=== PATIENT | female | born 1960 | race Caucasian/White ===

== ENCOUNTER → 2017-11-04 | Outpatient (CLI) | payer BC ==
[~2017-11-04] MED LIST: ALPR-429 PO; AMLO-106 PO; AMLO-109 PO; AMLO-476 PO; ASPI-715 PO; ASPI81TA94 PO; ATOR40TA24 PO; CALC-1 PO; CHOL10005 PO; CLAR-1 PO; CLON-327 PO; CLON1 PO; CYA1000 PO; DIA5 PO; ESCI20TA38 PO; ESCI20TA8 PO; ESCI5TAB10 PO; FOLI-68 PO; HYDR-2966 PO; KET10 PO; LOR05 PO; METO50TA19 PO; PER PO; VARE1TAB3 PO
== END ==
LOC: AUD 12:30
PROVIDERS: ATTEND Otolaryngology
DX: H69.82 Other specified disorders of Eustachian tube, left ear (principal)
CPT/HCPCS: 92553; 92570

== ENCOUNTER → 2018-02-13 | Outpatient (CLI) | payer BC ==
[~2018-02-13] MED LIST changes: +FLU60VIA41 IM
--- NOTE | 2018-02-15 16:26 | RADIOLOGY IMAGING REPORT ---
FACILITY: [facility] - [place] PATIENT NAME: PAUL CALERO : [id number] MR: [id number] V: [id number] EXAM DATE: ORDERING PHYSICIAN: YUNG BURCH TECHNOLOGIST: Joy Garcia PROCEDURE:BILATERAL DIGITAL SCREENING MAMMOGRAM WITH CAD ASSISTED INTERPRETATION & 3D TOMOSYNTHESIS COMPARISON:Prior mammograms 02/09/17, 11/20/15, 11/05/14, 09/17/13, 09/11/13. INDICATIONS:SCREENING FINDINGS: There are scattered areas of fibroglandular density in both breasts. The parenchymal pattern has remained stable allowing for difference in mammographic technique & patient positioning. DIAGNOSTIC CATEGORY 1--NEGATIVE. RECOMMENDATIONS: ROUTINE MAMMOGRAM AND CLINICAL EVALUATION. IMPRESSION: BIRADS 1: Negative. No significant abnormality is seen. Dictated by: Lupis Greene M.D. on 02/15/2018 at 9:51 Transcribed by: MIRIAM on 02/15/2018 at 9:59 Approved by: Lupis Greene M.D. on 02/15/2018 at 16:25 [facility]
== END ==
LOC: MAMO 04:08
PROVIDERS: ATTEND Emergency Medicine
DX: Z12.31 Encounter for screening mammogram for malignant neoplasm of breast (principal); Z80.3 Family history of malignant neoplasm of breast
CPT/HCPCS: 77063; 77067

== ENCOUNTER 2018-03-27 15:59 | Inpatient (IN) | payer BC ==
[~2018-03-27] VITALS: Ht 162.6 cm; Wt 85.7 kg
[~2018-03-27 15:59] MED LIST changes: -ALB6.7R INH; -LEVO750T27 PO; -OMEG-36 PO; -PRED20TA6 PO; -[UNRECOGNIZED DRUG - OTHER]; -tumeric PO
[2018-03-27 16:14] VITALS: BP 146/94
[2018-03-27] MEDS ORDERED: [UNRECOGNIZED DRUG - OTHER] (16:23)
[2018-03-27] MEDS ORDERED: FOLI-68 PO (16:23)
[2018-03-27] MEDS ORDERED: tumeric PO (16:23)
[2018-03-27] MEDS ORDERED: OMEG-36 PO (16:23)
[2018-03-27] MEDS ORDERED: ACETAMINOPHEN 325 MG TAB PO PRN (16:55)
[2018-03-27] MEDS ORDERED: methylPREDNIS SUCC 125 MG/2ML IVP ONE (16:55)
[2018-03-27] MEDS ORDERED: NICOTINE INH SYSTEM 10 MG/INH INH PRN (16:55)
--- NOTE | 2018-03-27 17:11 | History & Physical ---
History of Present Illness Chief Complaint Cough and fever History of Present Illness This patient was seen in the outpatient clinic for cough and fever over the last 3 days. She has also complained of some nausea and diarrhea. History Problems: (1) Hypertension Status: Chronic (2) Mixed hyperlipidemia Status: Chronic (3) Obesity (BMI 30.0-34.9) Status: Chronic Home Meds Active Scripts Clonidine Hcl (CLONIDINE HCL) 0.1 Mg Tablet, 1 TAB PO BID, #180 TAB 3 Refills Prov:YUNG BURCH MD 01/24/18 Hydrochlorothiazide (HYDROCHLOROTHIAZIDE) 25 Mg Tablet, 1 TAB PO QDAY, #90 TAB 3 Refills Prov:YUNG BURCH MD 11/28/17 Amlodipine Besylate/Benazepril (LOTREL 10-40 MG CAPSULE) 1 Each Capsule, 1 EACH PO DAILY, #90 CAPSULE 3 Refills Prov:YUNG BURCH MD 11/28/17 Escitalopram Oxalate (ESCITALOPRAM OXALATE) 20 Mg Tablet, 1 TAB PO QDAY, #90 TAB 3 Refills Prov:YUNG BURCH MD 08/08/17 Reported Medications Folic Acid (FOLIC ACID) 1 Mg Tablet, 1 TAB PO QDAY, TAB unknown dose 03/27/18 [place]-3 Fatty Acids/Fish Oil (OMEGA 3 FISH OIL SOFTGEL) 1 Each Capsule.dr, 1 EACH PO QDAY 03/27/18 [tumeric] No Conflict Check, 1 TAB PO QDAY 03/27/18 Aspirin (ASPIRIN) 81 Mg Tab.chew, 81 MG PO DAILY, TAB.CHEW 05/24/17 Cholecalciferol (Vitamin D3) (VITAMIN D3) 1,000 Unit Tablet, 1000 UNIT PO BID, TAB 05/24/17 Cyanocobalamin (Vitamin B-12) (VITAMIN B-12) 1,000 Mcg Tablet, 1000 MCG PO DAILY 05/24/17 Discontinued Reported Medications [tumer] No Conflict Check 03/27/18 Discontinued Scripts Alprazolam (XANAX) 0.5 Mg Tablet, 1 TAB PO ONCE, #10 TAB Take half an hour before flight and then every four hours if needed Prov:YUNG BURCH MD 11/06/17 Allergies: Coded Allergies: Penicillins (Verified Allergy, Severe, ANAPHYLAXIS, 11/07/08) Patient History: FH: COPD (chronic obstructive pulmonary disease) MOTHER, , Age:83 FH: aortic aneurysm MOTHER, , Age:83 FH: coronary artery disease FATHER, , Age:55 FH: hypertension BROTHER OR SISTER BROTHER OR SISTER BROTHER OR SISTER BROTHER OR SISTER FH: lupus BROTHER OR SISTER Hx Smoking: Yes (5-10 CIG DAY/ X8 YEARS) Smoking Status: Former Smoker Exposure to Second Hand Smoke?: Yes (both parents smoked) When Quit Tobacco?: 1 wk ago Caffeine/Cups Per Day: QUIT 05/2015 Hx Alcohol Use: Yes (RARELY) Hx Substance Use Disorder: No Social Drug Use: Never Review of Systems All Systems Reviewed/Normal: Yes, Except as Noted Constitutional: Fever Respiratory: Cough Exam Vital Signs Vital Signs Date Time Temp Pulse Resp B/P (MAP) Pulse Ox O2 Delivery O2 Flow Rate FiO2 03/27/18 16:35 90 Nasal Cannula 3.0 03/27/18 16:14 99.1 78 18 146/94 (111) Neuro: No Gross deficits Eyes: PERRLA Cardiovascular: Regular Rate and Rhythm Respiratory: Other (Bilateral rhonchi.) Extremities: No Edema Integumentary: No Cyanosis Assessment and Plan Problems: (1) Bacterial pneumonia Assessment & Plan: Her chest x-ray did show bilateral infiltrates. She has been started on empiric treatment with levofloxacin. Blood cultures are pending. She is a smoker, but has never been diagnosed with COPD. We have started her on empiric treatment with prednisone. (2) Hypertension Status: Chronic Assessment & Plan: She is on chronic treatment with amlodipine, benazepril, clonidine, and hydrochlorothiazide. The diuretic has been placed on hold. (3) Obesity (BMI 30.0-34.9) Status: Chronic Copies to: YUNG BURCH MD ; Venous Thromboembolism Antithrombotics Is Pt On Any Antithrombotics?: No COLETTE CABRERA DO Mar 27, 2018 17:11
[2018-03-27] MEDS ORDERED: NS(*) 0.9% 1000 ML BAG 1,000 ML ONE (17:42)
[2018-03-27] MEDS: KCL (*) 20 MEQ/100 ML PREMIX 100 ML IV SCH ×2 (17:46→20:18)
[2018-03-27] MEDS ORDERED: NICOTINE CARTRIDGE 1 EA PO PRN (18:50)
[2018-03-27 20:15] VITALS: BP 152/89
[2018-03-27] MEDS: CHOLECALCIFEROL 1000 UNIT TAB PO SCH (20:18)
[2018-03-27] MEDS: cloNIDine HCL 0.1 MG TAB PO SCH (20:18)
[2018-03-27 22:05] VITALS: BP 129/82
[2018-03-27] MEDS: POTASSIUM CHL 20 MEQ TABCR PO SCH (22:54)
[2018-03-28] MEDS ORDERED: LEVOFLOXACIN/D5W 750 MG/150 ML 150 ML IVPB SCH (06:00)
[2018-03-28 06:19] LABS: PLATELET COUNT, AUTOMATED 130 K/uL (150-450)
[2018-03-28 07:16] VITALS: BP 158/92
[2018-03-28] MEDS ORDERED: ALBUTEROL/IPRATROPIUM 3 ML NEB NEB PRN (08:55)
[2018-03-28] MEDS: ALBUTEROL/IPRATROPIUM 3 ML NEB NEB SCH ×2 (09:00→20:29)
[2018-03-28] MEDS: ALBUTEROL 2.5 MG/3 ML NEB NEB PRN ×2 (09:05→11:04)
[2018-03-28] MEDS: cloNIDine HCL 0.1 MG TAB PO SCH ×2 (09:34→20:38)
[2018-03-28] MEDS: CYANOCOBALAMIN 1000 MCG TAB PO SCH (09:34)
[2018-03-28] MEDS: CHOLECALCIFEROL 1000 UNIT TAB PO SCH ×2 (09:34→20:38)
[2018-03-28] MEDS: ASPIRIN 81 MG CHEW PO SCH (09:35)
[2018-03-28] MEDS: predniSONE 20 MG TAB PO SCH (09:35)
[2018-03-28] MEDS: amLODIPine BESYL(*) 5 MG TAB PO SCH (09:35)
[2018-03-28] MEDS: BENAZEPRIL HCL 20 MG TAB PO SCH (09:35)
[2018-03-28] MEDS: FOLIC ACID 1 MG TAB PO SCH (09:36)
[2018-03-28] MEDS: POTASSIUM CHL 20 MEQ TABCR PO SCH ×2 (09:36→20:39)
[2018-03-28] MEDS: ESCITALOPRAM OXALATE 10 MG TAB PO SCH (09:36)
--- NOTE | 2018-03-28 09:53 | Antimicrobial Stewardship ---
Antimicrobial Stewardship Empiricly appropriate: Yes (levofloxacin) Significant PMH: Yes (+ smoker) Support empiric regimen: Yes Approriate Cultures done: Yes (Blood Cx x 2 NGTD) Determine cumulative duration: day 1 Determine standard duration: 5 days Comment 57 yo F who presented with SOB, cough for days (+) history of smoking. Afebrile WBC wnl CRP 16 AST/ALT slightly elevated Blood Cx x 2 - NGTD Chest xray showed bilateral inflitrates, R mid and upper lobes with cons olidation Pt started on prednisone and levofloxacin 750 mg IV x 1, then switch to oral levofloxacin 750 mg po daily x 4 doses, total duration of treatment is 5 days. Henny Church, PharmD, BCOP HENNY CHURCH Mar 28, 2018 09:52
[2018-03-28 11:12] VITALS: BP 146/85
--- NOTE | 2018-03-28 14:02 | Hospitalist Progress Note ---
Subjective Progress Notes Subjective 57F admitted for pneumonia. MITCHELL overnight, slight improvement today. Patient Complains of: Gastrointestinal: No Nausea, No Vomiting Physical Exam Vital Signs Date Time Temp Pulse Resp B/P (MAP) Pulse Ox O2 Delivery O2 Flow Rate FiO2 03/28/18 11:17 79 03/28/18 11:12 98.3 80 20 146/85 (105) Nasal Cannula 3.0 Intake and Output 03/28/18 06:59 Intake Total 185 ml Output Total 150 ml Balance 35 ml IV Total 185 ml Output Urine Total 150 ml # Voids 3 General Appearance: Alert, Awake, No Acute Distress, Afebrile Neuro: No Gross deficits ENT: Normal Cardiovascular: Normal Rhythm & Peripheral Pulses Respiratory: No Respiratory Distress (3L NC) GI: Soft and Non-Tender Extremities: Soft and Non Tender, Warm, Pulses, Perfused Result Diagram: 03/28/1851703/28/18517 Assessment and Plan Problems: (1) Bacterial pneumonia Assessment & Plan: Her chest x-ray did show bilateral infiltrates. She has been started on empiric treatment with levofloxacin. Blood cultures are pending. She is a smoker, but has never been diagnosed with COPD. We have started her on prednisone. (2) Hypertension Status: Chronic Assessment & Plan: She is on chronic treatment with amlodipine, benazepril, clonidine, and hydrochlorothiazide. The diuretic has been placed on hold. (3) Obesity (BMI 30.0-34.9) Status: Chronic Exam Sepsis Risk: No Definite Risk LINDA MUNIZ DO Mar 28, 2018 14:01
[2018-03-28 15:31] VITALS: BP 158/88
[2018-03-28 18:50] VITALS: BP 138/86
[2018-03-29] MEDS ORDERED: LEVOFLOXACIN 750 MG TAB PO SCH (06:00)
[2018-03-29] MEDS: ALBUTEROL/IPRATROPIUM 3 ML NEB NEB SCH (09:06)
[2018-03-29] MEDS: CHOLECALCIFEROL 1000 UNIT TAB PO SCH (09:34)
[2018-03-29] MEDS: ESCITALOPRAM OXALATE 10 MG TAB PO SCH (09:34)
[2018-03-29] MEDS: FOLIC ACID 1 MG TAB PO SCH (09:34)
[2018-03-29] MEDS: cloNIDine HCL 0.1 MG TAB PO SCH (09:35)
[2018-03-29] MEDS: amLODIPine BESYL(*) 5 MG TAB PO SCH (09:35)
[2018-03-29] MEDS: POTASSIUM CHL 20 MEQ TABCR PO SCH (09:35)
[2018-03-29] MEDS: predniSONE 20 MG TAB PO SCH (09:35)
[2018-03-29] MEDS: BENAZEPRIL HCL 20 MG TAB PO SCH (09:35)
[2018-03-29] MEDS: CYANOCOBALAMIN 1000 MCG TAB PO SCH (09:35)
[2018-03-29] MEDS: ASPIRIN 81 MG CHEW PO SCH (09:36)
[2018-03-29 09:39] VITALS: BP 146/91
[2018-03-29 11:17] VITALS: BP 147/89
[2018-03-29] MEDS ORDERED: LEVO750T27 PO (14:27)
[2018-03-29] MEDS ORDERED: PRED20TA6 PO (14:27)
[2018-03-29] MEDS ORDERED: ALB6.7R INH (14:34)
--- NOTE | 2018-03-29 14:34 | Hospitalist Depart ---
Discharge Summary Reason for Hosp/Final Diag: (1) Bacterial pneumonia Hospital Course & Plan: She presented with cough and fever for 3 days prior to admission. Her chest x-ray did show bilateral infiltrates. She has been started on empiric treatment with levofloxacin. Blood cultures are without growth so far She is a smoker, but has never been diagnosed with COPD. We have started her on prednisone. She is feeling much better but still requiring O2. She will go home on 3 more days of levofloxacin and 5 days of prednisone. She will be given a script for albuterol. She understands that she needs to stop smoking. (2) Hypertension Status: Chronic Hospital Course & Plan: She is on chronic treatment with amlodipine, benazepril, clonidine, and hydrochlorothiazide. The diuretic was placed on hold. (3) Obesity (BMI 30.0-34.9) Status: Chronic Departure Weight (Pounds): 189 Result Diagram: 03/28/1851703/29/18 0538 Item Value Date Time Neutrophils (%) (Auto) 88.4 % H 03/28/18 0518 Lymphocytes (%) (Auto) 9.7 % L 03/28/18 0518 Monocytes (%) (Auto) 1.7 % L 03/28/18 0518 Eosinophils (%) (Auto) 0.0 % L 03/28/18 0518 Basophils (%) (Auto) 0.2 % L 03/28/18 0518 Total Bilirubin 0.4 mg/dl 03/28/18 0518 Aspartate Amino Transf (AST/SGOT) 48 U/L H 03/28/18 0518 Alanine Aminotransferase (ALT/SGPT) 71 U/L H 03/28/18 0518 Alkaline Phosphatase 104 U/L 03/28/18 0518 Total Protein 6.7 g/dl 03/28/18 0518 Blood culture without growth x2 since 03/27/18 Imaging 03/27/18 CXR - Left greater than right mid to upper lung consolidation concerning for a multifocal bronchopneumonia. These findings could alternatively represent pulmonary hemorrhage or multifocal nonspecific pulmonary consolidation potentially related to an atypical infectious process such as a viral pneumonia. Condition: Improved Discharge: Home Discharge Instructions Home Meds Active Scripts Albuterol Sulfate (PROVENTIL HFA) 6.7 Gm Inh, 2 PUFF INH Q4-6H, #1 INH Prov:CLAU VILLAFUERTE MD 03/29/18 Prednisone (PREDNISONE) 20 Mg Tablet, 20 MG PO QDAY, #5 Prov:CLAU VILLAFUERTE MD 03/29/18 Levofloxacin 750 Mg Tab (LEVOFLOXACIN 750 MG TAB) 750 Mg Tablet, 750 MG PO QDAY@0600, #3 Prov:CLAU VILLAFUERTE MD 03/29/18 Clonidine Hcl (CLONIDINE HCL) 0.1 Mg Tablet, 1 TAB PO BID, #180 TAB 3 Refills Prov:YUNG BURCH MD 01/24/18 Hydrochlorothiazide (HYDROCHLOROTHIAZIDE) 25 Mg Tablet, 1 TAB PO QDAY, #90 TAB 3 Refills Prov:YUNG BURCH MD 11/28/17 Amlodipine Besylate/Benazepril (LOTREL 10-40 MG CAPSULE) 1 Each Capsule, 1 EACH PO DAILY, #90 CAPSULE 3 Refills Prov:YUNG BURCH MD 11/28/17 Escitalopram Oxalate (ESCITALOPRAM OXALATE) 20 Mg Tablet, 1 TAB PO QDAY, #90 TAB 3 Refills Prov:YUNG BURCH MD 08/08/17 Reported Medications Folic Acid (FOLIC ACID) 1 Mg Tablet, 1 TAB PO QDAY, TAB unknown dose 03/27/18 [place]-3 Fatty Acids/Fish Oil (OMEGA 3 FISH OIL SOFTGEL) 1 Each Capsule.dr, 1 EACH PO QDAY 03/27/18 [tumeric] No Conflict Check, 1 TAB PO QDAY 03/27/18 Aspirin (ASPIRIN) 81 Mg Tab.chew, 81 MG PO DAILY, TAB.CHEW 05/24/17 Cholecalciferol (Vitamin D3) (VITAMIN D3) 1,000 Unit Tablet, 1000 UNIT PO BID, TAB 05/24/17 Cyanocobalamin (Vitamin B-12) (VITAMIN B-12) 1,000 Mcg Tablet, 1000 MCG PO DAILY 05/24/17 Discontinued Reported Medications [tumer] No Conflict Check 03/27/18 Discontinued Scripts Alprazolam (XANAX) 0.5 Mg Tablet, 1 TAB PO ONCE, #10 TAB Take half an hour before flight and then every four hours if needed Prov:YUNG BURCH MD 11/06/17 Special Instructions: Don't smoke Wear O2 at 2 liters 24 hours a day until clear by your PCP. Go to the ER for worsening shortness of breath. Get a follow up CXR in 6 weeks. Schedule through your PCP Follow up with your PCP in 1-2 weeks. Copies to: YUNG BURCH MD ; Venous Thromboembolism Antithrombotics Is Pt On Any Antithrombotics?: No CLAU VILLAFUERTE MD Mar 29, 2018 14:34
[2018-03-29] MEDS ORDERED: INFLUENZA VIRUS VAC 0.5ML SYR IM ONLY ONE (16:55)
== END 2018-03-29 15:36 | disposition home or self-care (01) | DRG 195 ==
LOC: MED 16:01
PROVIDERS: ADMIT Family Medicine; ATTEND Family Medicine
DX: J15.9 Unspecified bacterial pneumonia (principal); I10 Essential (primary) hypertension; F17.210 Nicotine dependence, cigarettes, uncomplicated; E66.9 Obesity, unspecified; Z68.32 Body mass index [BMI] 32.0-32.9, adult; Z88.0 Allergy status to penicillin
CPT/HCPCS: 36415; 82040; 82247; 82310; 82374; 82435; 82565; 82947; 84075; 84132; 84155; 84295; 84450; 84460; 84520; 85025; 87040; 94640; 94667; 94668; J1956; J2930; J3480; J7030; J7512; J7613

== ENCOUNTER → 2018-03-27 | Outpatient (CLI) | payer BC ==
[~2018-03-27] MED LIST changes: +ALB6.7R INH; +LEVO750T27 PO; +OMEG-36 PO; +PRED20TA6 PO; +[UNRECOGNIZED DRUG - OTHER]; +tumeric PO
[2018-03-27 15:09] LABS: PLATELET COUNT, AUTOMATED 152 K/uL (150-450)
--- NOTE | 2018-03-27 15:24 | RADIOLOGY IMAGING REPORT ---
FACILITY: [facility] - [place] PATIENT NAME: Kierra Kimbrough : 1960 MR: [id number] V: [id number] EXAM DATE: ORDERING PHYSICIAN: YUNG BURCH TECHNOLOGIST: Location: [facility] Patient: Kierra Kimbrough : 1960 Visit/Account:[id number] Date of Sevice: 03/27/2018 ADDENDUM #1 Results were called to YUNG BURCH on 03/27/2018 3:46 PM. Report Dictated By: Alexi Salinas MD at 03/27/2018 3:46 PM Report E-Signed By: Alexi Salinas MD at 03/27/2018 3:46 PM ORIGINAL REPORT CHEST PA LAT INDICATION: Hypoxia, productive cough COMPARISON: None available FINDINGS: Frontal and lateral views obtained. The cardiac silhouette is normal in size. No pneumoth orax. No pleural fluid. Moderate-sized ill-defined consolidation in the left mid to upper lung. Sm all patch of consolidation in the central right midlung. Slight convexity left thoracic scoliosis. No acute osseous abnormality. IMPRESSION: Left greater than right mid to upper lung consolidation concerning for a multifocal bronchopneumonia. These findings could alternatively represent pulmonary hemorrhage or multifocal nonspecific pulmona ry consolidation potentially related to an atypical infectious process such as a viral pneumonia. Report Dictated By: Alexi Salinas MD at 03/27/2018 3:17 PM Report E-Signed By: Alexi Salinas MD at 03/27/2018 3:20 PM WSN:[id number]
== END ==
LOC: RAD 14:40
PROVIDERS: ATTEND Emergency Medicine
DX: R91.8 Other nonspecific abnormal finding of lung field (principal); H66.90 Otitis media, unspecified, unspecified ear
CPT/HCPCS: 36415; 71046; 82040; 82247; 82310; 82374; 82435; 82565; 82947; 84075; 84132; 84155; 84295; 84450; 84460; 84520; 85025; 86140